=== PATIENT | male | born 1930 | race Caucasian/White ===

== ENCOUNTER 2016-09-29 19:48 | Inpatient (IN) | payer OTHER ==
--- NOTE | ~2016-09-29 | DS ---
Unit #: [id number] #: [id number] Patient: LUANN BONILLA [id number] [address] [place], [place] [address] [id number] I MR#: [id number] NAME: LUANN BONILLA ROOM: 340 Age: 86 Sex: M Admission Date: 09/29/2016 : 1930 Discharge Date: Attending Physician: Dea Rea M.D. Primary Care Physician: Marquis Agee M.D. DISCHARGE SUMMARY DIAGNOSIS ON ADMISSION 1. Acute exacerbation of COPD. 2. Lower respiratory tract infection. DIAGNOSES ON DISCHARGE 1. Acute bronchitis. 2. Chronic obstructive pulmonary disease, stable. 3. Coronary artery disease status post care coronary artery bypass graft and stent. 4. Chronic respiratory failure. The patient uses night oxygen. 5. Valvular heart disease with moderate tricuspid regurgitation. 6. Type 2 diabetes mellitus diet controlled. 7. Paroxysmal atrial fibrillation. 8. History of mitral valve repair. 9. Dyslipidemia. DIAGNOSTIC STUDIES LABS: The patient's creatinine is 1.1, sodium 136, potassium 4.2. AST and ALT are within normal limits. WBC is 14.8, hemoglobin 13.6, platelet count 231. BNP was 566. HOSPITAL COURSE This 86-year-old patient was admitted to the hospital with shortness of air. Details are as per admission H and P. The patient was given Solu-Medrol in the emergency room. He is feeling much better now. Chest x-ray is negative. The patient has complained of chest congestion; therefore, likely he has acute bronchitis. Elevated BNP. The patient has been seen by cardiology, and he does not have any evidence of acute congestive heart failure. The patient had a two-D echo done, which cardiology will review. Therefore, the patient will be discharged home today. PHYSICAL EXAMINATION VITAL SIGNS: On physical examination today, the patient has temperature of 98.1, pulse 64 per minute, respiratory rate 14 per minute and blood pressure 117/75. HEENT: Examination revealed no conjunctival congestion. Sclera is nonicteric. NECK: Neck is supple. Trachea is central. RESPIRATORY: Examination revealed breath sounds equal bilaterally. No wheezes or crackles. HEART: Regular rate and rhythm. S1, S2. ABDOMEN: Abdomen is soft, nontender. Bowel sounds are present in all 4 Unit #: [id number] #: [id number] Patient: LUANN BONILLA. EXTREMITIES: Extremities reveal trace pedal edema. NEUROLOGIC: Strength is 5/5 bilaterally. RECOMMENDATIONS ON DISCHARGE 1. Condition is stable. 2. Activity is as tolerated. DISCHARGE MEDICATIONS 1. Albuterol Mini-Neb treatment b.i.d. scheduled and q.4 hours p.r.n. 2. Symbicort 160/4.5 two puffs daily. 3. Claritin 10 mg p.o. daily. 4. Lopressor 25 mg p.o. daily. 5. Bumex 1 mg p.o. b.i.d. 6. Livalo 2 mg p.o. daily. 7. Cozaar 25 mg p.o. daily. 8. Enteric-coated aspirin 81 mg p.o. daily. 9. Aldactone 25 mg p.o. daily. 10. Magnesium 250 mg p.o. daily. 11. Z-Bakari as directed. FOLLOW-UP 1. The patient is advised to follow up with primary care physician in 1 week or earlier as needed. 2. The patient is advised to follow up with cardiology as recommended. NOTE: The plan was discussed with the patient, who showed complete understanding. The patient is advised to call primary care physician or go to ER if his condition changes. Dictated by... Ad Solis/noa TD: 09/30/2016 11:53 JOB #: [id number] DISCHARGE SUMMARY Page 1 of 1 X Zack Oliveira MD X DISCHARGE SUMMARY
--- NOTE | ~2016-09-29 | CR63 ---
[facility] A Service of [facility] RADIOLOGY TEXT RESULTS PATIENT: LUANN BONILLA LOCATION: [facility] 340- : 31 UNIT #: [id number] AGE: [address]: Dea Rea MD SEX: M ORDER DR: [id number] [facility] [address] [facility] [place], [place] [address] [id number] MR#: [id number] Acc #: [id number] NAME: LUANN BONILLA : 1930 SEX: M STUDY DATE/TIME: 09/29/2016 21:26 UNIT: [address] ROOM: 340 STUDY DESCRIPTION: CR Chest 2 View Attending Physician: Dea Rea M.D. Ordering Physician: Estrada Aguilera M.D. Primary Care Physician: Marquis Agee M.D. MEDICAL IMAGING REPORT This report is preliminary unless electronic signature is present EXAM AP and lateral chest HISTORY Cough and congestion and shortness of air for 5 days. FINDINGS 2 views of the chest demonstrate moderate cardiac enlargement. Pulmonary vascularity is normal. No airspace infiltrates or pleural effusions. Sternotomy with mediastinal clips and CABG markers and cardiac valve prosthesis. Mild linear atelectasis or scarring in the right base. Older healing fracture lateral right tenth rib. IMPRESSION 1. No evidence of active disease in the chest. 2. Cardiac enlargement. Prior cardiac surgery. Dictated by... Vikas Harding M.D. THIS IS AN ELECTRONICALLY VERIFIED REPORT Vikas Harding M.D. at 10/07/2016 10:36 PM DFEmilee/ankur TD: 09/30/2016 08:19 JOB #: [id number] MEDICAL IMAGING REPORT Page 1 of 1 COPY
--- NOTE | ~2016-09-29 | HP ---
Unit #: [id number] #: [id number] Patient: LUANN BONILLA [id number] [address] [place], [place] [address] [id number] I MR#: [id number] NAME: LUANN BONILLA ROOM: 340 Age: 86 Sex: M Admission Date: 09/29/2016 : 1930 Attending Physician: Dea Rea M.D. Primary Care Physician: Marquis Agee M.D. HISTORY AND PHYSICAL CHIEF COMPLAINT Cough, shortness of breath, productive yellowish sputum, hypoxia. DISCUSSION This is an 86-year-old gentleman with history of COPD and uses oxygen at nighttime, history of coronary artery disease with previous CABG and stent, mitral valve repair, hypertension, diabetes, dyslipidemia, diabetes on diet at home, dyslipidemia and intolerant to statins, macular degeneration of eyes, history of lung nodules with negative biopsy in the past. He presented to the emergency room with the chief complaint of having cough, congestion, productive yellowish sputum for the last 3 days. He uses oxygen at home. He was found to be hypoxic with oxygen in the upper 80s and given nebulizer, Solu-Medrol with no improvement. Chest x-ray questionable pneumonia and eventually was admitted for pneumonia and COPD. Chest x-ray was read; official report shows no infiltrate but symptoms sound clinically pneumonia with lower respiratory infection, acute exacerbation of COPD clinically. He denied chest pain. Denies nausea, vomiting, headache, loss of consciousness or any other complaint. PAST MEDICAL HISTORY 1. History of COPD, oxygen dependent at night. 2. History of coronary artery disease status post 3-vessel CABG in 1989 and also followed by a stent. Ejection fraction 40% to 45% in the past. 3. Moderate tricuspid regurgitation. 4. History of lung nodule with negative biopsy in the past. 5. Diabetes, diet at home. 6. Macular degeneration of eyes. 7. History of mitral valve repair. 8. History of paroxysmal atrial fibrillation. 9. Dyslipidemia. PAST SURGICAL HISTORY 1. History of CABG and stent in the past. 2. History of mitral valve repair in 2011. ALLERGIES Allergic or intolerant to morphine. FAMILY HISTORY Negative for heart disease. Negative for lung cancer. SOCIAL HISTORY The patient lives at home. He was a previous smoker. He stopped smoking Unit #: [id number] #: [id number] Patient: LUANN BONILLA in 1971. Does not drink alcohol. No other illicit drug use. MEDICATIONS FROM HOME 1. DuoNeb 3 to 4 times daily p.r.n. 2. Aspirin 81 mg daily. 3. Symbicort 160/4.5 two puffs b.i.d. 4. Bumex 1 mg b.i.d. 5. Vitamin D 1,000 units daily. 6. Claritin 10 mg daily. 7. Cozaar 25 mg daily. 8. Magnesium 250 p.o. daily. 9. Metoprolol succinate 25 mg daily. 10. Livalo 2 mg daily. 11. Aldactone 25 mg daily. REVIEW OF SYSTEMS All review of systems is negative except as in history of present illness. PHYSICAL EXAMINATION GENERAL: Elderly man lying in bed comfortably, currently not in any distress. He is alert, awake, oriented x3. CURRENT VITALS: Temperature is 98, heart rate 69, respirations 18, blood pressure 117/65, oxygen 95% on room air. HEENT: Pupils are equal and reactive to light and accommodation. Extraocular muscles are intact. Pharynx is benign. NECK: Neck is supple. No JVD. No thyromegaly. LUNGS: Poor air entry bilaterally. HEART: S1, S2. Regular rate and rhythm with soft systolic murmur. ABDOMEN: Abdomen is soft, nontender, nondistended. Bowel sounds are positive. EXTREMITIES: Inspection normal. No cyanosis. No clubbing. Trace edema. NEUROLOGIC: He is alert, oriented x3. Cranial nerves II-XII intact. Power 5/5 on both sides. SKIN: Warm and dry. PSYCHIATRIC: Normal mood and affect. Very cooperative. DIAGNOSTIC STUDIES LABORATORY WORKUP: BNP is 401. Sodium 136, potassium 3.9, chloride 97, glucose 119, BUN 21, creatinine 1.2. LFTs within normal limits. CBC - White count 14, hemoglobin 13, hematocrit 41, platelets 231. Troponin less than 0.05. IMAGING: Chest x-ray negative for acute findings. ASSESSMENT AND PLAN 1. Acute exacerbation of COPD, oxygen dependent at night. Will start the patient on DuoNeb, IV Solu-Medrol, Mucinex. 2. Lower respiratory tract infection. Clinically sounds like pneumonia even though chest x-ray is negative. Start the patient on IV Levaquin. Will get sputum for culture and sensitivity x2. 3. History of coronary artery disease with previous stent and CABG. 4. History of paroxysmal atrial fibrillation as per old records. 5. History of mitral valve repair. 6. Hypertension. 7. History of diabetes. He is on diet at home. 8. Dyslipidemia, on Livalo. 9. History of macular degeneration of eyes. 10. History of lung nodule with negative biopsy in the past. Unit #: [id number] #: [id number] Patient: LUANN BONILLA 11. DVT and GI prophylaxis. Will place the patient on Protonix and Lovenox. Dictated by Ad Cho/noa TD: 09/30/2016 10:36 JOB #: [id number] HISTORY AND PHYSICAL Page 1 of 1 X X HISTORY AND PHYSICAL
--- NOTE | ~2016-09-29 | EKG ---
PATIENT: LUANN BONILLA UNIT #: [id number] Ventricular Rate: 71 BPM Atrial Rate: 104 BPM QRS Duration: 114 ms Q-T Interval: 428 ms QTC Calculation(Bezet): 465 ms Calculated R Galena: 22 degrees Calculated T Galena: 92 degrees Diagnosis Line: Atrial fibrillation Diagnosis Line: Low voltage QRS Diagnosis Line: Nonspecific ST and T wave abnormality Diagnosis Line: Abnormal ECG Diagnosis Line: When compared with ECG of 22-JAN-2014 16:48, Diagnosis Line: No significant change was found Diagnosis Line: Confirmed by RICARDO SAAVEDRA MD ([id number]) on Diagnosis Line: 09/30/2016 3:03:04 PM INTERPRETING MD: OPAL
--- NOTE | ~2016-09-29 | CO ---
Unit #: [id number] #: [id number] Patient: LUANN BONILLA [id number] [address] [place], [place] [address] [id number] I MR#: [id number] NAME: LUANN BONILLA ROOM: 340 Age: 86 Sex: M Admission Date: 09/29/2016 : 1930 Attending Physician: Dea Rea M.D. Primary Care Physician: Marquis Agee M.D. Consultation Date: 09/30/2016 CONSULTATION REPORT REASON FOR CONSULTATION Possible congestive heart failure. HISTORY OF PRESENT ILLNESS This is an 86-year-old white male who is known to Dr. Drake who has a history of coronary artery disease for which he underwent coronary artery bypass graft x4 with valve repaid of an unknown valve in 1993. In 2013, he had a myocardial infarction and underwent PCI with stent to the saphenous vein graft to the circumflex marginal and the diagonal of the left anterior descending artery. He is known to have hypertension, hyperlipidemia, and permanent atrial fibrillation not on anticoagulation because of significant nosebleeds. The patient was admitted with the complaint of worsening dyspnea and productive cough with yellow sputum. He says he is always dyspneic, but he thought he had a chest cold. He reports no fever or chills. He has no chest pain, palpitations, or dizziness. He denies paroxysmal nocturnal dyspnea, orthopnea, and leg edema. He is usually very active and exercises on a daily basis with roller skating and swimming without any symptoms. Because of concern for pneumonia, he came to the emergency room. In the emergency room, the patient was found to have an elevated BNP of 566. His chest x-ray shows no evidence of heart failure. Troponin is negative with no acute ischemic change on his electrocardiogram. PAST MEDICAL HISTORY 1. A 2D echocardiogram on November 23, 2013, showed an ejection fraction of 40% to 45% with impaired left ventricular relaxation. Left and right atrium mildly dilated. Moderate tricuspid regurgitation and trace mitral regurgitation. Right ventricular systolic pressure 50-60 mmHg. 2. Coronary artery bypass graft x4 with valve repaid of unknown valve in 1993. No details available. 3. Non-ST elevation myocardial infarction status post PCI with stent to his saphenous vein graft to the circumflex marginal and PCI and stent to the diagonal of the LAD on December 02, 2013, by Dr. Drake, at [facility]. 4. Hypertension. 5. Hyperlipidemia. 6. Permanent atrial fibrillation, not on anticoagulation secondary to significant nosebleeds in the past. 7. Diabetes mellitus type 2. 8. Chronic obstructive pulmonary disease. 9. Benign right lung mass. Unit #: [id number] #: [id number] Patient: LUANN BONILLA 10. Former smoker. PAST SURGICAL HISTORY 1. Coronary artery bypass graft. 2. Right lower lobe mass biopsy. SOCIAL HISTORY The patient lives at home alone. He quit smoking in 1973. He denies illicit drug and alcohol use. FAMILY HISTORY Negative for coronary artery disease. ALLERGIES Morphine and amoxicillin. HOME MEDICATIONS 1. Aspirin 81 mg daily. 2. Symbicort 160/4.5 mcg 2 puffs b.i.d. 3. Bumex 1 mg b.i.d. 4. Vitamin D 1000 units daily. 5. Claritin 10 mg daily. 6. Cozaar 25 mg daily. 7. Magnesium 250 mg daily. 8. Metoprolol succinate 25 mg daily. 9. Livalo 2 mg daily. 10. Aldactone 25 mg daily. REVIEW OF SYSTEMS CONSTITUTIONAL: Negative for fever or chills. Has no weight gain or weight loss. (1) weakness. HEENT: No headache, hearing or vision changes, or difficulty with swallowing. No dizziness. CARDIOVASCULAR: No symptoms of angina. Denies palpitations. No paroxysmal nocturnal dyspnea or orthopnea. No syncope or near syncope. RESPIRATORY: Positive for dyspnea at rest and on exertion. Has productive cough with yellow sputum. No hemoptysis. GASTROINTESTINAL: No abdominal pain, nausea, or vomiting. No constipation or melena. EXTREMITIES: Negative for lower extremity edema. PHYSICAL EXAMINATION VITAL SIGNS: Blood pressure 117/75, heart rate 64, and temperature 98.1. BMI is 26. GENERAL: This is a very pleasant, well-developed, 86-year-old white male who is in no acute distress. NEUROLOGIC: He is awake, alert, and oriented. There are no focal weaknesses. NECK: Trachea is midline. No thyromegaly or lymphadenopathy. No jugular venous distention. HEART: S1 and S2 heart sounds are normal. No murmurs, rubs, or clicks. Irregularly irregular rhythm. LUNGS: Diminished breath sounds both lungs without rales, rhonchi, or wheezing. ABDOMEN: Soft and nontender with bowel sounds present. No organomegaly. EXTREMITIES: No leg edema. SKIN: Warm and dry. Unit #: [id number] #: [id number] Patient: LUANN BONILLA DIAGNOSTIC STUDIES LABORATORY: Glucose 208, BUN 19, creatinine 1.1, sodium 136, and potassium 4.2. White count 14.8, hemoglobin 13.6, hematocrit 41.2, and platelet count 231,000. BNP 566. Troponin less than 0.05. IMAGING: Chest x-ray shows cardiac enlargement. There is mild atelectasis or scarring in the right base. No heart failure. CARDIOLOGY: EKG shows atrial fibrillation with controlled ventricular rate of 71 beats per minute. IMPRESSION 1. Chronic obstructive pulmonary disease exacerbation. 2. Questionable lower respiratory infection. 3. Permanent atrial fibrillation with controlled ventricular rate. 4. History of myocardial infarction and coronary artery bypass graft with mitral valve repair and percutaneous coronary intervention and stents in the past. 5. Stable angina. 6. Hypertension. 7. Hyperlipidemia. 8. Diabetes mellitus type 2. 9. Chronic systolic/diastolic heart failure. PLAN 1. Cardiology was consulted for congestive heart failure. The patient has no evidence of heart failure on examination. BNP is elevated. Chest x-ray without evidence of heart failure. Will continue on current diuretics with Bumex and Spironolactone. 2. Atrial fibrillation is permanent and in a controlled ventricular rate. Continue beta jasson. 3. Patient has a CHADS2-VASc score of 4 and needs long-term anticoagulation. However, because of significant nosebleeds in the past, he is not a candidate. 4. A 2D echocardiogram shows an ejection fraction of 45% to 50% with moderate left atrial enlargement and moderate to severe right atrial enlargement. Right ventricular systolic pressure is 41 mmHg that is consistent with mild pulmonary hypertension. Moderate mitral regurgitation and moderate tricuspid regurgitation. There are no significant changes from his previous echocardiogram with a slight improvement of his ejection fraction. 5. No cardiac workup is planned. 6. Follow up with Dr. Drake at discharge. Thank you for allowing us to assist with this patient's care. Dictated by... Homer Yung A.P.R.N. for Ad Quiñones/liseth TD: 10/02/2016 19:42 JOB #: [id number] CC: Tadeo Drake M.D. Unit #: [id number] #: [id number] Patient: LUANN BONILLA CONSULTATION REPORT Page 1 of 1 X Homer Yung APRN X CONSULTATION REPORT
[~2016-09-29 19:48] MED LIST: ALAVERT10 M1; ALAVERT10 MG/TAB PO; ALDACTONE PO; ARTIFICIAL TEAR15 M3 OP; ASPERDRINK81 MG; ASPIRIN EC81 M1 PO; ASPIRIN81 MG PO; CLEOCIN150 M1 PO; CLINDAMYCIN HC300 MG PO; COMBIVENT MININEB NEB; CORDARONE200 M1 PO; COUMADIN PO; COUMADIN4 MG PO; COUMADIN5 MG PO; COZAAR25 MG PO; EYE DROP TEARS15 ML OP; EYE VIT PO; LANOXIN PO; LASIX PO; LEVAQUIN750 MG PO; LISINOPRIL PO; LOPID600 MG PO; LOPRESSOR PO; LOSARTAN POTASS25 MG PO; LOVENOX SUBQ; METOPROLOL TAR25 MG PO; METOPROLOL TARTRATE PO; NITROMIST8.5 GM TL; NYSTATIN5 ML PO; OMNICEF300 M1 PO; PERCOCET5/325 PO; PLAVIX PO; SPIRONOLACTONE PO; SYMBICORT INH; SYMBICORT INHALER INH; SYMBICORT80; SYMBICORT80 INH; SYNTHROID PO; TYLENOL #3 PO; WARFARIN SODIUM4 M1 PO; lovenox SUBQ
[2016-09-29 21:18] LABS: POC - CKMB 5.5 ng/mL (0.0-7.9); POC - TROPONIN <0.05 ng/mL (<=0.05)
[2016-09-29 21:22] LABS: BASOPHIL# 0.2 X10e3 (0-0.3); BASOPHIL% 1.3 % (0-2.5); EOSINOPHIL# 0.4 X10e3 (0-0.7); EOSINOPHIL% 2.5 % (0.0-7.0); HEMATOCRIT 41.2 % (38.0-50.0); HEMOGLOBIN 13.6 gm/dL (13.0-16.0); LYMPHOCYTE% 6.9 % (17.0-45.0); MEAN CELL VOLUME 84.3 FL (83-96); MEAN CORPUSCULAR HEMOGLOBIN 27.8 PG (28-34); MEAN CORPUSCULAR HGB CONC 32.9 g/dL (30-36); MEAN PLATELET VOLUME 8.2 FL (6.5-11.5); MONOCYTE# 1.6 X10e3 (0-1.0); NEUTROPHIL# 11.6 X10e3 (1.5-7.1); NEUTROPHIL% 78.3 % (40-75); PLATELET COUNT 231 X10e3 (140-420); RED BLOOD COUNT 4.89 X10e (3.90-5.60); RED CELL DISTRIBUTION WIDTH 13.7 % (11.0-15.5); WHITE BLOOD COUNT 14.8 X10e3 (4.0-10.5)
[2016-09-29 21:24] LABS: DIFF IND NO
[2016-09-29 21:44] LABS: ALBUMIN SERUM 4.2 g/dL (3.5-5.0); BILIRUBIN, DIRECT 0.1 mg/dL (0.0-0.2); BILIRUBIN,INDIRECT 0.8 mg/dL (0.0-0.9); BILIRUBIN,TOTAL 0.9 mg/dL (0.2-2.0); BUN/CREATININE RATIO 17.5; CALCIUM SERUM 9.1 mg/dL (8.4-10.2); CREATININE SERUM 1.2 mg/dL (0.6-1.4); GLOM FILT RATE Estimated 54.8 mL/min (>60); POTASSIUM 3.9 mmol/L (3.5-5.1); PROTEIN TOTAL SERUM 8.3 g/dL (6.0-8.3)
[2016-09-29] MEDS ORDERED: ALBUTEROL2.5 MG/3 M (22:16)
[2016-09-29] MEDS ORDERED: SYMBICORT (22:17)
[2016-09-29] MEDS ORDERED: ASPIRIN81 MG PO (22:17)
[2016-09-29] MEDS ORDERED: BUMEX1 MG PO (22:17)
[2016-09-29] MEDS ORDERED: CLARITIN10 M3 PO (22:18)
[2016-09-29] MEDS ORDERED: VITAMIN D1000 UNI2 PO (22:18)
[2016-09-29] MEDS ORDERED: MAGNESIUM250 M1 PO (22:19)
[2016-09-29] MEDS ORDERED: COZAAR25 MG PO (22:19)
[2016-09-29] MEDS ORDERED: METOPROLOL SUCC25 MG PO (22:19)
[2016-09-29] MEDS ORDERED: ALDACTONE25 MG PO (22:20)
[2016-09-29] MEDS ORDERED: LIVALO2 MG PO (22:20)
[2016-09-30 06:11] LABS: BUN/CREATININE RATIO 17.27; CALCIUM SERUM 8.7 mg/dL (8.4-10.2); CREATININE SERUM 1.1 mg/dL (0.6-1.4); GLOM FILT RATE Estimated 60.9 mL/min (>60); POTASSIUM 4.2 mmol/L (3.5-5.1)
[2016-09-30] MEDS ORDERED: ZITHROMAX PO (11:39)
== END 2016-09-30 14:50 | disposition home health service (06) | DRG 191 ==
LOC: CED 19:48 → CEDOF 22:30 → CED 22:38 → CEDOF 22:38 → C3A PCU 09-30 00:04 → CEDOF 09-30 00:04 → C3A PCU 09-30 14:50
PROVIDERS: Emergency Medicine
PROC: B24BZZZ Ultrasonography of Heart with Aorta (ICD-10-PCS; principal; 2016-09-29)
DX: J44.0 Chronic obstructive pulmonary disease with (acute) lower respiratory infection (principal); J96.10 Chronic respiratory failure, unspecified whether with hypoxia or hypercapnia; Z99.81 Dependence on supplemental oxygen; I11.0 Hypertensive heart disease with heart failure; I50.42 Chronic combined systolic (congestive) and diastolic (congestive) heart failure; J44.1 Chronic obstructive pulmonary disease with (acute) exacerbation; J20.9 Acute bronchitis, unspecified; I25.10 Atherosclerotic heart disease of native coronary artery without angina pectoris; Z95.5 Presence of coronary angioplasty implant and graft; Z95.1 Presence of aortocoronary bypass graft; Z87.891 Personal history of nicotine dependence; I25.2 Old myocardial infarction; E78.5 Hyperlipidemia, unspecified; I07.1 Rheumatic tricuspid insufficiency; E11.9 Type 2 diabetes mellitus without complications; I48.2 Chronic atrial fibrillation; Z88.1 Allergy status to other antibiotic agents; Z88.5 Allergy status to narcotic agent; Z79.82 Long term (current) use of aspirin
CPT/HCPCS: 36415; 71020; 80048; 80076; 82553; 82947; 83880; 84484; 85025; 87040; 87070; 87205; 93005; 93306; 94640; 96374; 99284; J1650; J1815; J1956; J2920; J2930